=== PATIENT | male | born 2005 | race Caucasian/White ===

== ENCOUNTER 2023-02-17 09:14 | Emergency (ER) | payer OTHER, SELFPAY ==
--- NOTE | 2023-02-17 09:53 | ED.GENADULT ---
HPI - General Adult General Chief complaint: Upper Respiratory Infection Stated complaint: Congestion/Sore Throat Source: patient Mode of arrival: ambulatory Limitations: no limitations History of Present Illness HPI narrative: Patient presents for evaluation of sick symptoms for last 2 days. Symptoms include hot flashes, chills, scratchy throat, productive cough of clear/yellow sputum, generalized body aches, sinus congestion and clear rhinorrhea. No objective fever, nausea, vomiting, diarrhea, shortness of breath. No recent sick contacts to his knowledge. He tried taking Mucinex for symptoms. No additional complaints or concerns. Related Data Home Medications Medication Instructions Recorded Confirmed No Home Medications 02/17/23 02/17/23 Allergies Allergy/AdvReac Type Severity Reaction Status Date / Time codeine AdvReac Rash Verified 02/17/23 09:52 Review of Systems Review of Systems: CONSTITUTIONAL: Reports hot flashes and chills. Denies objective fever EYES: Denies visual changes, redness, or discharge. ENT: Reports sinus congestion, clear rhinorrhea, sore throat CARDIOVASCULAR: Denies chest pain, palpitations, or edema. RESPIRATORY: Reports productive cough of clear/yellow sputum. Denies SOB GASTROINTESTINAL: Denies abdominal pain, nausea, vomiting, or diarrhea. GENITOURINARY: Denies dysuria or hematuria. SKIN: Denies rash or itching. MUSCULOSKELETAL: Reports generalized body aches NEUROLOGIC: Denies headache, numbness, dizziness, or weakness. PSYCHIATRIC: Denies anxiety or depression. PMFSH Past Medical History Medical History No pertinent past medical history Surgical History Surgical History No pertinent past surgical history Family History Family History Mother Family history non-contributory Social History Social History Substance use: never Living arrangements: with family Gender identity (if verbalized by the patient): Male Spiritual care concerns: No Exam Narrative: GENERAL: Well-appearing, well-nourished, and in no acute distress. HEAD: Normocephalic, atraumatic. EYES: PERRLA and EOMI. ENT: Nares clear, no rhinorrhea or epistaxis. Mucous membranes moist. Oropharynx without tonsillar hypertrophy exudate or other lesions. Bilateral TMs pearly venegas nonbulging NECK: Supple. No adenopathy or masses. No carotid bruits or JVD CHEST: Clear to auscultation. No respiratory distress. No wheezes rales or rhonchi HEART: Regular rate and rhythm. No murmur heard. Normal peripheral pulses. ABDOMEN: Soft, nontender, nondistended, normal active bowel sounds. EXTREMITIES: Normal range of motion. No edema. SKIN: Warm, dry, no rash. NEURO: No focal deficits. Alert and oriented x3. PSYCH: Normal mood and affect. Course Course Emergency Course: This is a 17-year-old male who presented for evaluation of sick symptoms. Strep, COVID, influenza were all negative. Exam is consistent with viral URI. Change Mucinex to Mucinex DM. Increase hydration. Follow up with primary provider. Go to emergency department for worsening symptoms. Patient in agreement with plan care. Level of Care: Express Care Visit Vital Signs Vital signs: Vital Signs Temperature 36.5 C 02/17/23 09:55 Pulse Rate 91 02/17/23 09:55 Respiratory Rate 20 02/17/23 09:55 Blood Pressure 134/70 02/17/23 09:55 Pulse Oximetry 98 02/17/23 09:55 Oxygen Delivery Room Air 02/17/23 09:55 Temperature 36.5 C 02/17/23 09:55 Pulse Rate 91 02/17/23 09:55 Respiratory Rate 20 02/17/23 09:55 Blood Pressure 134/70 02/17/23 09:55 Pulse Oximetry 98 02/17/23 09:55 Oxygen Delivery Room Air 02/17/23 09:55 Medical Decision Making Vital Signs V
[2023-02-17 09:55] VITALS: BP 134/70; PULSE 91; RESP 20; TEMP 36.5; O2SAT 98
[2023-02-17 12:05] VITALS: BP 134/70; PULSE 88; RESP 20; TEMP 36.5; O2SAT 98
== END 2023-02-17 12:10 | disposition home or self-care (01) ==
PROVIDERS: Emergency Provider Nurse Practitioner
DX: J06.9 Acute upper respiratory infection, unspecified (principal); Z20.822 Contact with and (suspected) exposure to COVID-19
CPT/HCPCS: 87081; 87426; 87804; 87880; 99213; C9803; G0463

== ENCOUNTER 2024-12-10 08:47 | Emergency (ER) | payer OTHER, SELFPAY ==
[2024-12-10 08:48] VITALS: BP 135/74; PULSE 87; RESP 18; TEMP 36.6; O2SAT 99
--- OUTSIDE RECORDS SUMMARY | 2024-12-10 08:50 | XMS_ITS | Clinical Summary ---
Author Organization [facility] Address [address] [place] [address] Phone Care Team Providers Care Settlement Technician Name Role Phone Giovani Herbert Primary Care Provider [phone] Allergies Active Allergy Reactions Criticality Noted Date Comments Codeine Vomiting 02/23/2022 Medications naproxen (NAPROSYN) 500 MG TabletIndicatio ns:Intractable episodic tension-type headache Take 1 Tablet by mouth 2 times daily (with meals). 60 Tablet Active Additional Information Patient not taking.Reported on 07/08/2024 Active Problems No known active problems Immunizations Immunization Administration Dates Next Due Covid-19, Mrna, Lnp-s, Pf, 3 0 Mcg/0.3 Ml Dose (CytoViva) 09/28/2020,08/31/2020 DTAP VACCINE 02/07/2005,03/10/2004,01/07/2004 DTAP VACCINE, 5 PERTUSSIS AN TIGENS, VACCINE IM 10/12/2008,02/07/2005,03/10/2004,01/06,2003 DTAP/HEPB/IPV Vaccine 2003 Hepatitis A Vaccine 03/21/2023 Hepatitis A Vaccine, Pediatric/adolescent, 2 Dose Schedule 02/01/2022,09/07/2006,01/01/2006 Hepatitis B Vaccine, Pediatric/adolescent 03/10/2004,01/07/2004,2003 Hepatitis B Vaccine,unspecif ied Formulation 2003 Hib Vaccine,unspecified Formulation 11/2004,03/10/2004,01/07/2004,11/10 Human Papillomavirus (HPV) 9 -valent Vaccine 07/03/2017,05/02/2017 Inactivated Polio Vaccine 10/12/2008,12/2003,01/07/2004,11/10 Influenza Vaccine, MDCK,quad rivalent, pres free 03/21/2023 Influenza Vaccine, Quadrivalent, PF 03/11/2021,1 06/05/2019,03/29/2018 Influenza Vaccine,unspecifie d Formulation 05/13/2004 Influenza,Split Virus,Trivalent,Injectable,PF 02/14/2024 MMR Vaccine 10/18/2007,10/03/2004 Meningococcal MCV4O 02/25/2021 Meningococcal Vaccine 03/04/2015 Pneumococcal Vaccine Peds - 7 Valent 11/2004,03/10/2004,01/07/2004,11/10 TDAP Vaccine 03/04/2015 Varicella Vaccine Live 10/18/2007,10/03/2004 Family History Medical History Relation Name Comments Hypertension Father Hypertension Maternal Aunt Hypertension Paternal Grandfather Relation Name Status Comments Father Maternal Aunt Paternal Grandfather Social History Tobacco Use Types Packs/Day Years Used Date Smoking Tobacco: Never Smokeless Tobacco: Never Tobacco Cessation:Counseling Given: No Alcohol Use Standard Drinks/Week Comments Never 0 (1 standard drink = 0.6 oz pur e alcohol) [facility] Utilities Answer Date Recorded In the past 12 months has e [employer], gas, oil, or water [employer] threatened to shut off services in your home? No 07/08/2024 Social Connection and Isolation Panel Answer Date Recorded In a typical week, how many times do you talk on the phone with family, friends, or neighbors? More than three times a week 07/08/2024 How often do you get togethe r with friends or relatives? More than three times a week 07/08/2024 How often do you attend chur ch or mandaen services? Never 07/08/2024 Do you belong to any clubs o r organizations such as anglican groups, unions, fraternal or athletic groups, or school groups? No 07/08/2024 How often do you attend meet ings of the clubs or organizations you belong to? Never 07/08/2024 Are you , , di vorced, , never , or living with a partner? Never 07/08/2024 AUDIT-C Answer Date Recorded Q1: How often do you have a drink containing alcohol? Never 07/08/2024 Q2: How many drinks containi ng alcohol do you have on a typical day when you are drinking? Patient does not drink Q3: How often do you have si x or more drinks on one occasion? Never 07/08/2024 Overall Financial Resource Strain (CARDIA) Answe r Date Recorded How hard is it for you to pa y for the very basics like food, housing, medical care, and heating? Not very hard 07/08/2024 PHQ-2 Answer Date Recorded Total Score - Questions 1-9 0 09/2024 [facility] Occupat ional Health - Occupational Stress Questionnaire Answer Date Recorded Do you feel stress - tense, restless, nervous, or anxious, or unable to sleep at night because your mind is troubled all the time - these days? To some extent 07/08/2024 Exercise Vital Sign Answer Date Recorde d On average, how many days pe r week do you engage in moderate to strenuous exercise (like a brisk walk)? 7 days 07/08/2024 On average, how many minutes do you engage in exercise at this level? 90 min 07/08/2024 Hunger Vital Sign Answer Date Recorded Within the past 12 months, y ou worried that your food would run out before you got the money to buy more. Never true 07/08/19 25 Within the past 12 months, t he food you bought just didn't last and you didn't have money to get more. Never true 07/08/2024 PRAPARE - Transportation Answer Date Re corded In the past 12 months, has l ack of transportation kept you from medical appointments or from getting medications? No 09/2024 In the past 12 months, has l ack of transportation kept you from meetings, work, or from getting things needed for daily living? No 07/08/2024 Housing Stability Vital Sign Answer Edy e Recorded In the last 12 months, was t here a time when you were not able to pay the mortgage or rent on time? No 07/08/2024 In the past 12 months, how m any times have you moved where you were living? 0 07/08/2024 At any time in the past 12 m [facility], were you homeless or living in a fci (including now)? No 07/08/2024 Education Answer Date Recorded What is the highest level of school you have completed or the highest degree you have received? 12th grade 04/04/2022 Sexually Active Control Partners Comments Yes Female Sex and Gender Information Value Date Recorded Sex Assigned at Not on file Legal Sex Male 8:58 PM CDT Gender Identity Not on file Sexual Orientation Not on file Last Filed Vital Signs Vital Sign Reading Time Taken Comments Blood Pressure 118/86 07/08/2024 7:24 AM NUCLEAR PHARMACIST Pulse 86 07/08/2024 7:24 AM NUCLEAR PHARMACIST Temperature 37.9 C (100.2 F) 07/08/2024 7:24 AM NUCLEAR PHARMACIST Respiratory Rate 18 07/08/2024 7:24 AM NUCLEAR PHARMACIST Oxygen Saturation 98% 07/08/2024 7:24 AM NUCLEAR PHARMACIST Inhaled Oxygen Concentration - - Weight 92.1 kg (203 lb) 07/08/2024 7:24 AM NUCLEAR PHARMACIST Height 185.4 cm (6' 1) 07/08/2024 7:24 AM NUCLEAR PHARMACIST Body Mass Index 26.78 07/08/2024 7:24 AM NUCLEAR PHARMACIST Plan of Treatment Upcoming Encounters Date Type Department Care Team (Late st Contact Info) Description 02/06/2025 8:00 AM CDT Lab [facility] [address] [place] [address] [facility] 02/13/2025 7:15 AM CDT Office Visit [facility] [address] [place] [address] Giovani Herbert PAC [address] [place] [address] Health Maintenance Due Date Last Done Comments Hepatitis C Virus (HCV) Screening 2003 Human Papillomavirus (HPV) Immunization (3 - Male 2-dose series) 10/30/2017 07/03/2017, 05/02/2017 Meningococcal B Immunization (1 of 2 - Standard) 2019 SARS-COV-2 Immunization (3 - 2024-25 season) 2024 09/28/2020, 08/31/2020 Influenza Immunization (#1) 02/02/202502/02, 03/21/2023, 03/11/2021, Additional history exists DTaP/Tdap/Td Immunization (7 - Td or Tdap) 03/04/2025 03/04/2015, 10/12/2008, 02/07/2005, Additional history exists Respiratory Syncytial Virus (RSV) Immunization (Adult) (1 - 1-dose 75+ series) 09/01/2078 Hepatitis B Immunization Completed 004, 01/07/2004, 2003, Additional history exists Pneumococcal Immunization Combined Aged Out 02/07/2005, 03/10/2004, 01/07/2004, Additional history exists No longer eligible based on patient's age to complete this topic Measles Mumps Rubella (MMR) Immunization Discontinued 10/18/2007, 10/03/2004 Varicella Immunization Discontinued 10/18/2007, 2004 Polio (IPV) Immunization Discontinued 009, 03/10/2004, 01/07/2004, Additional history exists Meningococcal Immunization (ACWY) Completed 02/25/2021, 03/04/2015 Hepatitis A Immunization Discontinued 023, 02/01/2022, 09/07/2006, Additional history exists Rotavirus Immunization Aged Out No lo nger eligible based on patient's age to complete this topic Insurance [employer] Care Teams Settlement Technician Relationship Specialty Start Date End Date Giovani Herbert, PAC [address] [place] [address] PCP - General Physician Management Liaison 04/05/22
--- NOTE | 2024-12-10 09:03 | ED.URI ---
HPI - URI/Sore Throat General Chief Complaint: Upper Respiratory Infection Stated Complaint: Cough Time Seen by Provider: 12/10/24 08:56 Source: patient and RN notes reviewed Mode of arrival: ambulatory Limitations: no limitations History of Present Illness HPI Narrative: 19-year-old male presents with concern for 6 day history of cough, scratchy throat hoarse voice. Reports he has been taking Mucinex without relief. Denies runny nose, stuffy nose. Reports he had body aches and fever beginning of his symptoms. He denies nose contacts. Reports sore throats 09/11 MD elicited complaint: cough and sore throat Related Data Allergies Allergy/AdvReac Type Severity Reaction Status Date / Time codeine AdvReac Rash Verified 02/17/23 09:52 Review of Systems Review of Systems: CONSTITUTIONAL: Denies malaise, chills, sweats, or fever. EYES: Denies visual changes, redness, or discharge. ENT: Reports sore throat. Denies rhinorrhea, congestion, sinus pain, otalgia CARDIOVASCULAR: Denies chest pain, palpitations, or edema. RESPIRATORY: Reports cough. Denies dyspnea. GASTROINTESTINAL: Denies abdominal pain, nausea, vomiting, diarrhea SKIN: Denies rash or itching. MUSCULOSKELETAL: Denies myalgia. NEUROLOGIC: Denies headache. All systems reviewed & are unremarkable except as noted in HPI and below PMFSH Past Medical History Medical History (Updated 12/10/24 @ 09:04 by Ruth Ann Angel NP) No pertinent past medical history Surgical History Surgical History No pertinent past surgical history Family History Family History Mother Family history non-contributory Social History Social History Substance use: never Living arrangements: with family Gender identity (if verbalized by the patient): Male Spiritual care concerns: No Comments At time of signature, agree with nursing past medical, surgical, social and family history. There is no relevant family history pertinent to the presenting complaint Exam Narrative: GENERAL: Well-appearing, well-nourished, and in no acute distress. HEAD: Normocephalic EYES: PERRLA, conjunctivae clear ENT: Nares clear. Mucous membranes moist. TM pearly venegas with sharp light reflex bilaterally; no tragal tenderness. Oropharynx erythematous without lesions. Tonsils not enlarged and without exudate, no drooling, hoarse voice noted, no trismus, uvula midline. NECK: Supple. No lymphadenopathy CHEST: Clear to auscultation, breath sounds equal. No wheezing, rhonchi, rales, or stridor. No respiratory distress, speaks in full sentences. HEART: Regular rate and rhythm. No murmur heard. SKIN: Warm, dry, no rash. NEURO: Alert and oriented x3. PSYCH: Normal mood and affect Course Course Emergency Course: Patient is aware of diagnosis, understands and agrees to treatment plan. Anticipatory guidance given. Patient agrees to follow-up as directed and is aware of reasons to seek care at the emergency department. Portions of this record may have been created with voice recognition software Level of Care: Express Care Visit Vital Signs Vital signs: Vital Signs Temperature 97.8 F 12/10/24 08:48 Pulse Rate 87 12/10/24 08:48 Respiratory Rate 18 12/10/24 08:48 Blood Pressure 135/74 12/10/24 08:48 Pulse Oximetry 99 12/10/24 08:48 Oxygen Delivery Room Air 12/10/24 08:48 Temperature 97.8 F 12/10/24 08:48 Pulse Rate 87 12/10/24 08:48 Respiratory Rate 18 12/10/24 08:48 Blood Pressure 135/74 12/10/24 08:48 Pulse Oximetry 99 12/10/24 08:48 Oxygen Delivery Room Air 12/10/24 08:48 Reviewed. MDM - URI/Sore Throat MDM Narrative Medical decision making narrative: Differential diagnosis considered: Spivey virus, strep pharyngitis, allergic rhinitis, upper respiratory tract infection, sinusitis, rhinosinusitis, nasopharyngitis. viral pharyngitis, otitis media, otitis externa, pneumonia, bronchitis, viral cough syndrome, viral syndrome, and influenza. Exam findings show no acute concerns or changes; patient is non-toxic appearing and is in no distress. Patient is appropriate for outpatient treatment and follow-up. Lab Data Attestation: I reviewed the patient's lab results. Critical Care Time Critical Care Time Critical Care Time: No Discharge Plan Discharge Clinical Impression: Bronchitis Patient Disposition: Home Condition: Stable Instructions: Acute Bronchitis (ED) Additional Instructions: Viral illness may last between 7-21 days; antibiotics do not cure viral illness and are NOT recommended at this time. Recommend antihistamine such as Benadryl at night time and Zyrtec or Ricarda during the day Cough syrup may cause drowsiness; avoid driving or take it at night time. Also, recommend symptomatic treatment includes: rest, fluids, and increase humidity of the air at home. Recommend Acetaminophen as directed on the bottle to reduce fever, pain, headache. Avoid smoking/second-hand smoke. Please schedule a follow-up visit with your personal physician for further evaluation and treatment within 3-5days. Including recheck and discussion of your blood pressure. If your symptoms persist, change or worsen significantly before you can contact your personal physician then please, without delay, go to the emergency department for further evaluation. Patient Language: German Prescriptions: New promethazine-DM 6.25-15 mg/5 mL syrup 5 ml PO Q4-6H PRN (Reason: cough) Qty: 120 0RF methylprednisolone [Medrol (Carlos Alberto)] 4 mg tablets,dose pack See Rx Instructions .ROUTE .COMPLEX Qty: 21 0RF Rx Instructions: orally per package directions Follow-up/Referrals: PHYSICIAN NOT ON STAFF,NONSTAFF [Primary Care Provider] - Time of Disposition: 09:06
== END 2024-12-10 09:07 | disposition home or self-care (01) ==
PROVIDERS: Emergency Provider Nurse Practitioner
DX: J40 Bronchitis, not specified as acute or chronic (principal)
CPT/HCPCS: 99213; G0463